=== PATIENT | female | born 1955 | race Caucasian/White ===

== ENCOUNTER → 2017-09-02 | Outpatient (CLI) | payer OTHER ==
[~2017-09-02] MED LIST: Lomotil Tablet1 EACH PO; ONDA8 PO; XARELTO20 MG PO; [UNRECOGNIZED DRUG - OTHER]
== END | disposition home or self-care (01) ==
LOC: LAB 09:38 → LAB SHORT 09:38
DX: R19.7 Diarrhea, unspecified (principal)
CPT/HCPCS: 87493

== ENCOUNTER 2017-09-03 10:31 | Emergency (ER) | payer OTHER ==
[~2017-09-03] VITALS: Ht 167.6 cm; Wt 54.4 kg
[2017-09-03 12:13] LABS: Hemoglobin 14.9 g/dL (11.5-16.0); Mean Corpuscular HGB 31.6 pg (26.0-34.0); Mean Corpuscular HGB Conc 33.9 g/dL (31.5-36.5); Mean Corpuscular Volume 93 fL (80-100); Platelet Count 221 K/mm3 (150-400); RDW Coefficient Variation 16.8 % (11.7-14.2); RDW Standard Deviation 56.1 fL (35.1-46.3); Red Blood Cell Count 4.71 M/mm3 (3.80-5.20); White Blood Cell Count 19.95 K/mm3 (4.00-11.30)
[2017-09-03 12:32] LABS: Alanine Aminotransfer (ALT/SGP 99 U/L (12-78); Albumin/Globulin Ratio 0.9 (0.8-1.8); Alk Phos 169 U/L (50-136); Anion Gap 9 mmol/L (6-16); Aspartate Aminotrans (AST/SGOT 34 U/L (12-37); Bilirubin, Total 0.4 mg/dL (0.1-1.0); Blood Urea Nitrogen 7 mg/dL (8-24); Bun/Creatinine Ratio 11.8 (12.0-20.0); CO2, Blood 24 mmol/L (21-32); Calcium, Blood 8.7 mg/dL (8.5-10.1); Chloride, Blood 105 mmol/L (98-108); Creatinine, Blood 0.59 mg/dL (0.40-1.00); Globulin, Blood 3.3 g/dL (2.2-4.0); Glomerular Filtration Rate >60 (60-); Glucose, Blood 85 mg/dL (70-99); Magnesium, Blood 1.4 mg/dL (1.6-2.4); Potassium, Blood 3.9 mmol/L (3.5-5.5); Sodium, Blood 138 mmol/L (136-145); Total Protein, Blood 6.3 g/dL (6.4-8.2)
[2017-09-03 12:43] LABS: BAND PERCENT MAN 4 % (0-8); BASOPHILS ABSOLUTE MAN 0.19 K/mm3 (0.00-0.23); BASOPHILS PERCENT MAN 1 % (0-2); EOSINOPHILS PERCENT MAN 0 % (0-6); LYMPHOCYTES ABSOLUTE MAN 0.79 K/mm3 (0.84-5.20); LYMPHOCYTES PERCENT MAN 4 % (21-46); MONOCYTES ABSOLUTE MAN 0.99 K/mm3 (0.16-1.47); MONOCYTES PERCENT MAN 5 % (4-13); NEUTROPHILS ABSOLUTE MAN 17.95 K/mm3 (1.96-9.15); SEG NEUTROPHILS PERCENT MAN 86 % (41-73); TOTAL CELLS COUNTED 100
[2017-09-03] MEDS ORDERED: Lomotil Tablet1 EACH PO (14:00)
== END 2017-09-03 15:23 | disposition home or self-care (01) ==
LOC: ER 10:31
PROVIDERS: Emergency Medicine
DX: K52.1 Toxic gastroenteritis and colitis (principal); E86.0 Dehydration; T45.1X5A Adverse effect of antineoplastic and immunosuppressive drugs, initial encounter; C18.9 Malignant neoplasm of colon, unspecified; C78.02 Secondary malignant neoplasm of left lung; C78.01 Secondary malignant neoplasm of right lung; C77.9 Secondary and unspecified malignant neoplasm of lymph node, unspecified; Z88.8 Allergy status to other drugs, medicaments and biological substances; Z88.0 Allergy status to penicillin; Z79.899 Other long term (current) drug therapy
CPT/HCPCS: 36415; 80053; 83735; 85025; 96365; 96366; 96375; 99283; J1200; J3475; J7030

== ENCOUNTER 2017-09-06 16:42 | Inpatient (IN) | payer OTHER ==
[~2017-09-06] VITALS: Ht 167.6 cm; Wt 60.1 kg
[2017-09-06 17:21] LABS: BASOPHILS ABSOLUTE AUTO 0.17 K/mm3 (0.00-0.23); BASOPHILS PERCENT AUTO 1 % (0-2); EOSINOPHILS ABSOLUTE AUTO 1.23 K/mm3 (0.00-0.68); EOSINOPHILS PERCENT AUTO 7 % (0-6); Hematocrit 43.3 % (33.0-51.0); Hemoglobin 14.9 g/dL (11.5-16.0); IMMATURE GRAN ABSOLUTE AUTO 0.23 K/mm3 (0.00-0.10); IMMATURE GRAN PERCENT AUTO 1 % (0-1); LYMPHOCYTES ABSOLUTE AUTO 0.72 K/mm3 (0.84-5.20); LYMPHOCYTES PERCENT AUTO 4 % (21-46); MONOCYTES ABSOLUTE AUTO 1.19 K/mm3 (0.16-1.47); MONOCYTES PERCENT AUTO 7 % (4-13); Mean Corpuscular HGB 31.7 pg (26.0-34.0); Mean Corpuscular HGB Conc 34.4 g/dL (31.5-36.5); Mean Corpuscular Volume 92 fL (80-100); Mean Platelet Volume 9.3 fL (9.1-12.4); NEUTROPHILS ABSOLUTE AUTO 14.52 K/mm3 (1.96-9.15); NEUTROPHILS PERCENT AUTO 80 % (41-73); Platelet Count 360 K/mm3 (150-400); RDW Coefficient Variation 16.3 % (11.7-14.2); RDW Standard Deviation 54.4 fL (35.1-46.3); White Blood Cell Count 18.06 K/mm3 (4.00-11.30)
[2017-09-06 17:47] LABS: Albumin, Blood 3.1 g/dL (3.4-5.0); Bilirubin, Total 0.5 mg/dL (0.1-1.0); Bun/Creatinine Ratio 17.6 (12.0-20.0); Calcium, Blood 8.2 mg/dL (8.5-10.1); Creatinine, Blood 1.02 mg/dL (0.40-1.00); Globulin, Blood 3.1 g/dL (2.2-4.0); Total Protein, Blood 6.2 g/dL (6.4-8.2)
[2017-09-06 19:04] LABS: International Normalized Ratio 2.02; Prothrombin Time Results 21.5 Sec (9.7-11.5)
[2017-09-08 07:38] LABS: BASOPHILS PERCENT AUTO 1 % (0-2); EOSINOPHILS ABSOLUTE AUTO 1.39 K/mm3 (0.00-0.68); EOSINOPHILS PERCENT AUTO 8 % (0-6); Hematocrit 37.2 % (33.0-51.0); Hemoglobin 12.8 g/dL (11.5-16.0); IMMATURE GRAN ABSOLUTE AUTO 0.19 K/mm3 (0.00-0.10); IMMATURE GRAN PERCENT AUTO 1 % (0-1); LYMPHOCYTES ABSOLUTE AUTO 0.48 K/mm3 (0.84-5.20); LYMPHOCYTES PERCENT AUTO 3 % (21-46); MONOCYTES ABSOLUTE AUTO 1.21 K/mm3 (0.16-1.47); MONOCYTES PERCENT AUTO 7 % (4-13); Mean Corpuscular HGB 31.3 pg (26.0-34.0); Mean Corpuscular HGB Conc 34.4 g/dL (31.5-36.5); Mean Corpuscular Volume 91 fL (80-100); Mean Platelet Volume 9.4 fL (9.1-12.4); NEUTROPHILS ABSOLUTE AUTO 14.03 K/mm3 (1.96-9.15); NEUTROPHILS PERCENT AUTO 81 % (41-73); Platelet Count 339 K/mm3 (150-400); RDW Coefficient Variation 16.5 % (11.7-14.2); RDW Standard Deviation 54.2 fL (35.1-46.3); Red Blood Cell Count 4.09 M/mm3 (3.80-5.20)
[2017-09-08 08:01] LABS: Bilirubin, Urine Neg (Neg); Blood, Urine 5+ (Neg); Glucose Qualitative, Urine Neg (Neg); Ketones, Urine 4+ (Neg); Leukocyte Esterase, Urine 1+ (Neg); Nitrite, Urine Neg (Neg); Protein, Urine 2+ (Neg); Specific Gravity, Urine 1.025 (1.003-1.022); Urobilinogen, Urine NORM (Normal)
[2017-09-08 08:03] LABS: Magnesium, Blood 1.2 mg/dL (1.6-2.4)
[2017-09-08 08:13] LABS: Alanine Aminotransfer (ALT/SGP 64 U/L (12-78); Albumin, Blood 2.5 g/dL (3.4-5.0); Alk Phos 105 U/L (50-136); Anion Gap 18 mmol/L (6-16); Aspartate Aminotrans (AST/SGOT 20 U/L (12-37); Bilirubin, Total 0.5 mg/dL (0.1-1.0); Blood Urea Nitrogen 10 mg/dL (8-24); CO2, Blood 9 mmol/L (21-32); Calcium, Blood 7.9 mg/dL (8.5-10.1); Chloride, Blood 110 mmol/L (98-108); Creatinine, Blood 0.59 mg/dL (0.40-1.00); Globulin, Blood 2.6 g/dL (2.2-4.0); Glomerular Filtration Rate >60 (60-); Glucose, Blood 68 mg/dL (70-99); Sodium, Blood 137 mmol/L (136-145); Total Protein, Blood 5.1 g/dL (6.4-8.2)
[2017-09-08 08:42] LABS: Appearance, Urine Clear (Clear); Color, Urine Yellow (P-Yellow)
[2017-09-08 08:47] LABS: Red Blood Cells, Urine 50-100 /hpf (0-2)
[2017-09-08 08:48] LABS: Bacteria Few /hpf; Hyaline Casts 0-2 /lpf (0-2); Squamous Epithelial Cells Few /hpf (Few)
[2017-09-09 05:48] LABS: BASOPHILS ABSOLUTE AUTO 0.12 K/mm3 (0.00-0.23); BASOPHILS PERCENT AUTO 1 % (0-2); EOSINOPHILS ABSOLUTE AUTO 1.77 K/mm3 (0.00-0.68); EOSINOPHILS PERCENT AUTO 14 % (0-6); Hematocrit 37.1 % (33.0-51.0); Hemoglobin 12.6 g/dL (11.5-16.0); IMMATURE GRAN PERCENT AUTO 1 % (0-1); LYMPHOCYTES ABSOLUTE AUTO 0.46 K/mm3 (0.84-5.20); LYMPHOCYTES PERCENT AUTO 4 % (21-46); MONOCYTES ABSOLUTE AUTO 1.11 K/mm3 (0.16-1.47); MONOCYTES PERCENT AUTO 9 % (4-13); Mean Corpuscular HGB 31.4 pg (26.0-34.0); Mean Corpuscular Volume 93 fL (80-100); Mean Platelet Volume 8.9 fL (9.1-12.4); NEUTROPHILS ABSOLUTE AUTO 9.39 K/mm3 (1.96-9.15); NEUTROPHILS PERCENT AUTO 72 % (41-73); Platelet Count 314 K/mm3 (150-400); RDW Coefficient Variation 16.5 % (11.7-14.2); RDW Standard Deviation 54.7 fL (35.1-46.3); Red Blood Cell Count 4.01 M/mm3 (3.80-5.20); White Blood Cell Count 12.95 K/mm3 (4.00-11.30)
[2017-09-09 06:06] LABS: Alanine Aminotransfer (ALT/SGP 51 U/L (12-78); Albumin, Blood 2.4 g/dL (3.4-5.0); Alk Phos 96 U/L (50-136); Anion Gap 15 mmol/L (6-16); Aspartate Aminotrans (AST/SGOT 18 U/L (12-37); Bilirubin, Total 0.4 mg/dL (0.1-1.0); Blood Urea Nitrogen 7 mg/dL (8-24); Bun/Creatinine Ratio 12.3 (12.0-20.0); CO2, Blood 13 mmol/L (21-32); Calcium, Blood 7.6 mg/dL (8.5-10.1); Chloride, Blood 109 mmol/L (98-108); Creatinine, Blood 0.57 mg/dL (0.40-1.00); Globulin, Blood 2.5 g/dL (2.2-4.0); Glomerular Filtration Rate >60 (60-); Glucose, Blood 77 mg/dL (70-99); Potassium, Blood 3.1 mmol/L (3.5-5.5); Sodium, Blood 137 mmol/L (136-145); Total Protein, Blood 4.9 g/dL (6.4-8.2)
[2017-09-10 05:21] LABS: BASOPHILS PERCENT AUTO 1 % (0-2); EOSINOPHILS ABSOLUTE AUTO 1.64 K/mm3 (0.00-0.68); EOSINOPHILS PERCENT AUTO 14 % (0-6); Hematocrit 36.1 % (33.0-51.0); Hemoglobin 12.4 g/dL (11.5-16.0); IMMATURE GRAN ABSOLUTE AUTO 0.09 K/mm3 (0.00-0.10); IMMATURE GRAN PERCENT AUTO 1 % (0-1); LYMPHOCYTES ABSOLUTE AUTO 0.48 K/mm3 (0.84-5.20); LYMPHOCYTES PERCENT AUTO 4 % (21-46); MONOCYTES PERCENT AUTO 8 % (4-13); Mean Corpuscular HGB 31.2 pg (26.0-34.0); Mean Corpuscular HGB Conc 34.3 g/dL (31.5-36.5); Mean Corpuscular Volume 91 fL (80-100); Mean Platelet Volume 8.8 fL (9.1-12.4); NEUTROPHILS ABSOLUTE AUTO 8.55 K/mm3 (1.96-9.15); NEUTROPHILS PERCENT AUTO 72 % (41-73); Platelet Count 324 K/mm3 (150-400); RDW Coefficient Variation 16.5 % (11.7-14.2); RDW Standard Deviation 54.3 fL (35.1-46.3); Red Blood Cell Count 3.97 M/mm3 (3.80-5.20); White Blood Cell Count 11.86 K/mm3 (4.00-11.30)
[2017-09-10 05:41] LABS: Anion Gap 11 mmol/L (6-16); Blood Urea Nitrogen 7 mg/dL (8-24); Bun/Creatinine Ratio 11.1 (12.0-20.0); CO2, Blood 15 mmol/L (21-32); Calcium, Blood 7.2 mg/dL (8.5-10.1); Chloride, Blood 114 mmol/L (98-108); Creatinine, Blood 0.63 mg/dL (0.40-1.00); Glomerular Filtration Rate >60 (60-); Glucose, Blood 95 mg/dL (70-99); Magnesium, Blood 1.2 mg/dL (1.6-2.4); Potassium, Blood 3.1 mmol/L (3.5-5.5); Sodium, Blood 140 mmol/L (136-145)
[2017-09-10 17:23] LABS: Alanine Aminotransfer (ALT/SGP 29 U/L (12-78); Albumin, Blood 1.8 g/dL (3.4-5.0); Alk Phos 65 U/L (50-136); Anion Gap 8 mmol/L (6-16); Aspartate Aminotrans (AST/SGOT 19 U/L (12-37); Bilirubin, Total <0.1 mg/dL (0.1-1.0); Blood Urea Nitrogen 5 mg/dL (8-24); Bun/Creatinine Ratio 8.8 (12.0-20.0); CO2, Blood 16 mmol/L (21-32); Calcium, Blood 6.7 mg/dL (8.5-10.1); Chloride, Blood 120 mmol/L (98-108); Creatinine, Blood 0.57 mg/dL (0.40-1.00); Globulin, Blood 1.8 g/dL (2.2-4.0); Glomerular Filtration Rate >60 (60-); Glucose, Blood 93 mg/dL (70-99); Magnesium, Blood 1.1 mg/dL (1.6-2.4); Potassium, Blood 3.6 mmol/L (3.5-5.5); Sodium, Blood 144 mmol/L (136-145); Total Protein, Blood 3.6 g/dL (6.4-8.2)
[2017-09-11 05:18] LABS: BASOPHILS ABSOLUTE AUTO 0.07 K/mm3 (0.00-0.23); BASOPHILS PERCENT AUTO 1 % (0-2); EOSINOPHILS PERCENT AUTO 17 % (0-6); Hematocrit 35.4 % (33.0-51.0); IMMATURE GRAN ABSOLUTE AUTO 0.08 K/mm3 (0.00-0.10); IMMATURE GRAN PERCENT AUTO 1 % (0-1); LYMPHOCYTES ABSOLUTE AUTO 0.42 K/mm3 (0.84-5.20); LYMPHOCYTES PERCENT AUTO 4 % (21-46); MONOCYTES PERCENT AUTO 8 % (4-13); Mean Corpuscular HGB 31.3 pg (26.0-34.0); Mean Corpuscular HGB Conc 33.9 g/dL (31.5-36.5); Mean Corpuscular Volume 92 fL (80-100); Mean Platelet Volume 8.9 fL (9.1-12.4); NEUTROPHILS ABSOLUTE AUTO 7.21 K/mm3 (1.96-9.15); NEUTROPHILS PERCENT AUTO 70 % (41-73); Platelet Count 296 K/mm3 (150-400); RDW Coefficient Variation 17.3 % (11.7-14.2); RDW Standard Deviation 57.4 fL (35.1-46.3); Red Blood Cell Count 3.83 M/mm3 (3.80-5.20); White Blood Cell Count 10.28 K/mm3 (4.00-11.30)
[2017-09-11 05:38] LABS: Alanine Aminotransfer (ALT/SGP 31 U/L (12-78); Albumin, Blood 1.9 g/dL (3.4-5.0); Albumin/Globulin Ratio 0.9 (0.8-1.8); Alk Phos 68 U/L (50-136); Anion Gap 9 mmol/L (6-16); Aspartate Aminotrans (AST/SGOT 18 U/L (12-37); Bilirubin, Total 0.2 mg/dL (0.1-1.0); Blood Urea Nitrogen 6 mg/dL (8-24); Bun/Creatinine Ratio 12.8 (12.0-20.0); CO2, Blood 16 mmol/L (21-32); Calcium, Blood 6.6 mg/dL (8.5-10.1); Chloride, Blood 117 mmol/L (98-108); Creatinine, Blood 0.47 mg/dL (0.40-1.00); Globulin, Blood 2.2 g/dL (2.2-4.0); Glomerular Filtration Rate >60 (60-); Glucose, Blood 94 mg/dL (70-99); Magnesium, Blood 1.7 mg/dL (1.6-2.4); Potassium, Blood 3.3 mmol/L (3.5-5.5); Sodium, Blood 142 mmol/L (136-145); Total Protein, Blood 4.1 g/dL (6.4-8.2)
[2017-09-12 05:01] LABS: BASOPHILS ABSOLUTE AUTO 0.07 K/mm3 (0.00-0.23); BASOPHILS PERCENT AUTO 1 % (0-2); EOSINOPHILS ABSOLUTE AUTO 1.78 K/mm3 (0.00-0.68); EOSINOPHILS PERCENT AUTO 18 % (0-6); Hematocrit 32.3 % (33.0-51.0); Hemoglobin 11.2 g/dL (11.5-16.0); IMMATURE GRAN ABSOLUTE AUTO 0.06 K/mm3 (0.00-0.10); IMMATURE GRAN PERCENT AUTO 1 % (0-1); LYMPHOCYTES ABSOLUTE AUTO 0.51 K/mm3 (0.84-5.20); LYMPHOCYTES PERCENT AUTO 5 % (21-46); MONOCYTES ABSOLUTE AUTO 0.72 K/mm3 (0.16-1.47); MONOCYTES PERCENT AUTO 7 % (4-13); Mean Corpuscular HGB 31.6 pg (26.0-34.0); Mean Corpuscular HGB Conc 34.7 g/dL (31.5-36.5); Mean Corpuscular Volume 91 fL (80-100); Mean Platelet Volume 8.9 fL (9.1-12.4); NEUTROPHILS ABSOLUTE AUTO 6.54 K/mm3 (1.96-9.15); NEUTROPHILS PERCENT AUTO 68 % (41-73); Platelet Count 313 K/mm3 (150-400); RDW Coefficient Variation 17.2 % (11.7-14.2); RDW Standard Deviation 56.8 fL (35.1-46.3); Red Blood Cell Count 3.54 M/mm3 (3.80-5.20); White Blood Cell Count 9.68 K/mm3 (4.00-11.30)
[2017-09-12 05:36] LABS: Anion Gap 9 mmol/L (6-16); Blood Urea Nitrogen 6 mg/dL (8-24); Bun/Creatinine Ratio 15.7 (12.0-20.0); CO2, Blood 20 mmol/L (21-32); Calcium, Blood 6.6 mg/dL (8.5-10.1); Chloride, Blood 114 mmol/L (98-108); Creatinine, Blood 0.38 mg/dL (0.40-1.00); Glomerular Filtration Rate >60 (60-); Glucose, Blood 88 mg/dL (70-99); Magnesium, Blood 1.3 mg/dL (1.6-2.4); Potassium, Blood 3.1 mmol/L (3.5-5.5); Sodium, Blood 143 mmol/L (136-145)
[2017-09-13 06:57] LABS: Anion Gap 8 mmol/L (6-16); Blood Urea Nitrogen 3 mg/dL (8-24); Bun/Creatinine Ratio 8.1 (12.0-20.0); CO2, Blood 23 mmol/L (21-32); Calcium, Blood 6.5 mg/dL (8.5-10.1); Chloride, Blood 113 mmol/L (98-108); Creatinine, Blood 0.37 mg/dL (0.40-1.00); Glomerular Filtration Rate >60 (60-); Glucose, Blood 82 mg/dL (70-99); Magnesium, Blood 1.3 mg/dL (1.6-2.4); Potassium, Blood 3.7 mmol/L (3.5-5.5); Sodium, Blood 144 mmol/L (136-145)
[2017-09-14 06:31] LABS: Anion Gap 8 mmol/L (6-16); Blood Urea Nitrogen 3 mg/dL (8-24); Bun/Creatinine Ratio 7.3 (12.0-20.0); CO2, Blood 24 mmol/L (21-32); Calcium, Blood 6.6 mg/dL (8.5-10.1); Chloride, Blood 112 mmol/L (98-108); Creatinine, Blood 0.41 mg/dL (0.40-1.00); Glomerular Filtration Rate >60 (60-); Glucose, Blood 87 mg/dL (70-99); Magnesium, Blood 1.4 mg/dL (1.6-2.4); Potassium, Blood 3.4 mmol/L (3.5-5.5); Sodium, Blood 144 mmol/L (136-145)
[2017-09-15 05:16] LABS: BASOPHILS ABSOLUTE AUTO 0.09 K/mm3 (0.00-0.23); BASOPHILS PERCENT AUTO 1 % (0-2); EOSINOPHILS ABSOLUTE AUTO 2.29 K/mm3 (0.00-0.68); EOSINOPHILS PERCENT AUTO 19 % (0-6); Hematocrit 33.9 % (33.0-51.0); Hemoglobin 11.8 g/dL (11.5-16.0); IMMATURE GRAN ABSOLUTE AUTO 0.08 K/mm3 (0.00-0.10); IMMATURE GRAN PERCENT AUTO 1 % (0-1); LYMPHOCYTES ABSOLUTE AUTO 1.26 K/mm3 (0.84-5.20); LYMPHOCYTES PERCENT AUTO 11 % (21-46); MONOCYTES ABSOLUTE AUTO 1.14 K/mm3 (0.16-1.47); MONOCYTES PERCENT AUTO 10 % (4-13); Mean Corpuscular HGB 31.5 pg (26.0-34.0); Mean Corpuscular HGB Conc 34.8 g/dL (31.5-36.5); Mean Corpuscular Volume 90 fL (80-100); Mean Platelet Volume 8.7 fL (9.1-12.4); NEUTROPHILS ABSOLUTE AUTO 7.07 K/mm3 (1.96-9.15); NEUTROPHILS PERCENT AUTO 59 % (41-73); Platelet Count 301 K/mm3 (150-400); RDW Standard Deviation 58.3 fL (35.1-46.3); Red Blood Cell Count 3.75 M/mm3 (3.80-5.20); White Blood Cell Count 11.93 K/mm3 (4.00-11.30)
[2017-09-15 05:42] LABS: Anion Gap 11 mmol/L (6-16); Blood Urea Nitrogen 6 mg/dL (8-24); Bun/Creatinine Ratio 14.3 (12.0-20.0); CO2, Blood 22 mmol/L (21-32); Calcium, Blood 6.7 mg/dL (8.5-10.1); Chloride, Blood 110 mmol/L (98-108); Creatinine, Blood 0.42 mg/dL (0.40-1.00); Glomerular Filtration Rate >60 (60-); Glucose, Blood 98 mg/dL (70-99); Magnesium, Blood 1.2 mg/dL (1.6-2.4); Potassium, Blood 3.9 mmol/L (3.5-5.5); Sodium, Blood 143 mmol/L (136-145)
[2017-09-15 19:56] LABS: Anion Gap 7 mmol/L (6-16); Blood Urea Nitrogen 7 mg/dL (8-24); Bun/Creatinine Ratio 15.5 (12.0-20.0); CO2, Blood 27 mmol/L (21-32); Calcium, Blood 7.3 mg/dL (8.5-10.1); Chloride, Blood 109 mmol/L (98-108); Creatinine, Blood 0.45 mg/dL (0.40-1.00); Glomerular Filtration Rate >60 (60-); Glucose, Blood 129 mg/dL (70-99); Sodium, Blood 143 mmol/L (136-145)
[2017-09-16 05:40] LABS: BASOPHILS ABSOLUTE AUTO 0.09 K/mm3 (0.00-0.23); BASOPHILS PERCENT AUTO 1 % (0-2); EOSINOPHILS ABSOLUTE AUTO 2.54 K/mm3 (0.00-0.68); EOSINOPHILS PERCENT AUTO 23 % (0-6); Hematocrit 33.9 % (33.0-51.0); Hemoglobin 11.5 g/dL (11.5-16.0); IMMATURE GRAN ABSOLUTE AUTO 0.04 K/mm3 (0.00-0.10); IMMATURE GRAN PERCENT AUTO 0 % (0-1); LYMPHOCYTES ABSOLUTE AUTO 1.32 K/mm3 (0.84-5.20); LYMPHOCYTES PERCENT AUTO 12 % (21-46); MONOCYTES PERCENT AUTO 9 % (4-13); Mean Corpuscular HGB 31.6 pg (26.0-34.0); Mean Corpuscular HGB Conc 33.9 g/dL (31.5-36.5); Mean Platelet Volume 8.3 fL (9.1-12.4); NEUTROPHILS ABSOLUTE AUTO 6.19 K/mm3 (1.96-9.15); NEUTROPHILS PERCENT AUTO 55 % (41-73); Platelet Count 329 K/mm3 (150-400); RDW Coefficient Variation 18.4 % (11.7-14.2); RDW Standard Deviation 60.3 fL (35.1-46.3); Red Blood Cell Count 3.64 M/mm3 (3.80-5.20); White Blood Cell Count 11.18 K/mm3 (4.00-11.30)
[2017-09-16 05:41] LABS: Mean Corpuscular Volume 93 fL (80-100)
[2017-09-16 05:59] LABS: Alanine Aminotransfer (ALT/SGP 54 U/L (12-78); Albumin, Blood 2.2 g/dL (3.4-5.0); Albumin/Globulin Ratio 0.9 (0.8-1.8); Alk Phos 67 U/L (50-136); Anion Gap 8 mmol/L (6-16); Aspartate Aminotrans (AST/SGOT 33 U/L (12-37); Bilirubin, Total 0.4 mg/dL (0.1-1.0); Blood Urea Nitrogen 6 mg/dL (8-24); CO2, Blood 27 mmol/L (21-32); Calcium, Blood 7.5 mg/dL (8.5-10.1); Chloride, Blood 109 mmol/L (98-108); Globulin, Blood 2.5 g/dL (2.2-4.0); Glomerular Filtration Rate >60 (60-); Glucose, Blood 98 mg/dL (70-99); Potassium, Blood 4.1 mmol/L (3.5-5.5); Sodium, Blood 144 mmol/L (136-145); Total Protein, Blood 4.7 g/dL (6.4-8.2)
[2017-09-17 05:33] LABS: Anion Gap 6 mmol/L (6-16); Blood Urea Nitrogen 7 mg/dL (8-24); Bun/Creatinine Ratio 15.1 (12.0-20.0); CO2, Blood 28 mmol/L (21-32); Calcium, Blood 7.7 mg/dL (8.5-10.1); Chloride, Blood 110 mmol/L (98-108); Creatinine, Blood 0.46 mg/dL (0.40-1.00); Glomerular Filtration Rate >60 (60-); Glucose, Blood 97 mg/dL (70-99); Magnesium, Blood 1.9 mg/dL (1.6-2.4); Potassium, Blood 4.2 mmol/L (3.5-5.5); Sodium, Blood 144 mmol/L (136-145)
[2017-09-17] MEDS ORDERED: ACET325 PO (12:19)
[2017-09-17] MEDS ORDERED: CALCITRATE200 MG PO (12:21)
[2017-09-17] MEDS ORDERED: DAIRY DIGES9000 UNIT PO (12:22)
[2017-09-17] MEDS ORDERED: CREON DR 12,001 EACH PO (12:22)
[2017-09-17] MEDS ORDERED: MAGOXI400 PO (12:23)
[2017-09-17] MEDS ORDERED: ONDA4 PO (12:29)
[2017-09-17] MEDS ORDERED: POTA10T PO (12:30)
[2017-09-17] MEDS ORDERED: XARELTO20 MG PO (12:30)
[2017-09-17] MEDS ORDERED: SACC250C PO (12:33)
[2017-09-17] MEDS ORDERED: SODBIC650 PO (12:33)
== END 2017-09-17 13:07 | disposition home or self-care (01) | DRG 372 ==
LOC: ER 16:42 → MEDS 16:43 → VAS 18:00 → MEDS 20:05 → ENPENDDIS 09-17 09:52 → MEDS 09-17 13:07
PROVIDERS: Emergency Medicine; Internal Medicine
DX: A04.72 Enterocolitis due to Clostridium difficile, not specified as recurrent (principal); I82.622 Acute embolism and thrombosis of deep veins of left upper extremity; C18.9 Malignant neoplasm of colon, unspecified; C79.9 Secondary malignant neoplasm of unspecified site; N17.9 Acute kidney failure, unspecified; N39.0 Urinary tract infection, site not specified; E46 Unspecified protein-calorie malnutrition; Z68.1 Body mass index [BMI] 19.9 or less, adult; E44.1 Mild protein-calorie malnutrition; E87.6 Hypokalemia; E83.42 Hypomagnesemia; E83.51 Hypocalcemia; B95.2 Enterococcus as the cause of diseases classified elsewhere; Z79.899 Other long term (current) drug therapy; Z88.0 Allergy status to penicillin
CPT/HCPCS: 36415; 36569; 80048; 80053; 81001; 83690; 83735; 85025; 85610; 85730; 87077; 87086; 87186; 87493; 93005; 93010; 93971; 96360; 96361; 99285; C1751; G0378; J0610; J0696; J1940; J2001; J2060; J3475; J3480; J7030; J7040; J7050

== ENCOUNTER 2018-12-26 18:04 | Emergency (ER) | payer OTHER ==
[~2018-12-26] VITALS: Ht 167.6 cm; Wt 53.1 kg
[~2018-12-26 18:04] MED LIST changes: +ACET325 PO; +CALCITRATE200 MG PO; +CREON DR 12,001 EACH PO; +DAIRY DIGES9000 UNIT PO; +MAGOXI400 PO; +ONDA4 PO; +POTA10T PO; +SACC250C PO; +SODBIC650 PO
[2018-12-26 19:28] LABS: Hematocrit 47.3 % (33.0-51.0); Hemoglobin 15.6 g/dL (11.5-16.0); LYMPHOCYTES ABSOLUTE AUTO 0.91 K/mm3 (0.84-5.20); LYMPHOCYTES PERCENT AUTO 6 % (21-46); MONOCYTES ABSOLUTE AUTO 0.38 K/mm3 (0.16-1.47); MONOCYTES PERCENT AUTO 2 % (4-13); Mean Corpuscular HGB 31.3 pg (26.0-34.0); Mean Corpuscular Volume 95 fL (80-100); Platelet Count 245 K/mm3 (150-400); RDW Coefficient Variation 13.5 % (11.7-14.2); RDW Standard Deviation 47.1 fL (35.1-46.3); Red Blood Cell Count 4.99 M/mm3 (3.80-5.20); White Blood Cell Count 15.88 K/mm3 (4.00-11.30)
[2018-12-26 19:29] LABS: BASOPHILS ABSOLUTE AUTO 0.03 K/mm3 (0.00-0.23); BASOPHILS PERCENT AUTO 0 % (0-2); EOSINOPHILS ABSOLUTE AUTO 0.19 K/mm3 (0.00-0.68); EOSINOPHILS PERCENT AUTO 1 % (0-6); IMMATURE GRAN ABSOLUTE AUTO 2.25 K/mm3 (0.00-0.10); IMMATURE GRAN PERCENT AUTO 14 % (0-1); NEUTROPHILS ABSOLUTE AUTO 12.12 K/mm3 (1.96-9.15); NEUTROPHILS PERCENT AUTO 76 % (41-73)
[2018-12-26 19:37] LABS: Source, Urine Clean Catch
[2018-12-26] MEDS ORDERED: CHEMO THERAPY (19:40)
[2018-12-26 19:49] LABS: BAND PERCENT MAN 5 % (0-8); BASOPHILS PERCENT MAN 0 % (0-2); EOSINOPHILS PERCENT MAN 0 % (0-6); LYMPHOCYTES ABSOLUTE MAN 1.74 K/mm3 (0.84-5.20); LYMPHOCYTES PERCENT MAN 11 % (21-46); MONOCYTES ABSOLUTE MAN 0.31 K/mm3 (0.16-1.47); MONOCYTES PERCENT MAN 2 % (4-13); NEUTROPHILS ABSOLUTE MAN 13.81 K/mm3 (1.96-9.15); SEG NEUTROPHILS PERCENT MAN 82 % (41-73); TOTAL CELLS COUNTED 100
[2018-12-26 19:50] LABS: Bilirubin, Urine Neg (Neg); Blood, Urine 2+ (Neg); Glucose Qualitative, Urine Neg (Neg); Ketones, Urine 3+ (Neg); Leukocyte Esterase, Urine 2+ (Neg); Nitrite, Urine Neg (Neg); Protein, Urine 2+ (Neg); Specific Gravity, Urine 1.025 (1.003-1.022); Urobilinogen, Urine NORM (Normal)
[2018-12-26 19:51] LABS: Alanine Aminotransfer (ALT/SGP 41 U/L (12-78); Albumin/Globulin Ratio 1.1 (0.8-1.8); Alk Phos 158 U/L (50-136); Anion Gap 6 mmol/L (6-16); Aspartate Aminotrans (AST/SGOT 37 U/L (12-37); Bilirubin, Total 0.7 mg/dL (0.1-1.0); Blood Urea Nitrogen 12 mg/dL (8-24); Bun/Creatinine Ratio 21.4 (12.0-20.0); CO2, Blood 26 mmol/L (21-32); Calcium, Blood 9.3 mg/dL (8.5-10.1); Chloride, Blood 103 mmol/L (98-108); Creatinine, Blood 0.56 mg/dL (0.40-1.00); Globulin, Blood 3.7 g/dL (2.2-4.0); Glomerular Filtration Rate >60 (60-); Glucose, Blood 98 mg/dL (70-99); Potassium, Blood 4.3 mmol/L (3.5-5.5); Sodium, Blood 135 mmol/L (136-145); Total Protein, Blood 7.7 g/dL (6.4-8.2)
[2018-12-26 19:57] LABS: Appearance, Urine Hazy (Clear); Color, Urine Yellow (P-Yellow)
[2018-12-26 19:59] LABS: Amorphous Light (0-Heavy); Bacteria Many /hpf; Calcium Oxalate Crystals Few /hpf; Mucus Light (0-Heavy); Squamous Epithelial Cells Mod /hpf (Few)
== END 2018-12-26 23:31 | disposition home or self-care (01) ==
LOC: ER 18:04
PROVIDERS: Emergency Medicine; Physician Assistant
DX: R19.7 Diarrhea, unspecified (principal); Z88.0 Allergy status to penicillin; Z88.8 Allergy status to other drugs, medicaments and biological substances; Z91.048 Other nonmedicinal substance allergy status; C18.9 Malignant neoplasm of colon, unspecified
CPT/HCPCS: 36415; 80053; 81001; 83605; 83690; 85025; 87040; 87077; 87086; 87186; 96360; 96361; 99284-25; J7030

== ENCOUNTER → 2018-12-27 | Outpatient (CLI) | payer OTHER ==
[~2018-12-27] MED LIST changes: +CHEMO THERAPY; +HYDR1TAB94 PO; +OMEPRAZOLE20 MG; +ONDA4ODT PO
[2018-12-27 15:39] LABS: Adenovirus F 40/41 Not Detected (NOT DETECT); Astrovirus Not Detected (NOT DETECT); Campylobacter Sp Not Detected (NOT DETECT); Cryptosporidium Not Detected (NOT DETECT); Cyclospora Cayetanensis Not Detected (NOT DETECT); E. Coli O157 Not Detected (NOT DETECT); Entamoeba Histolytica Not Detected (NOT DETECT); Enteroaggregative E. coli-EAEC Not Detected (NOT DETECT); Enteropathogenic E. coli-EPEC Not Detected (NOT DETECT); Enterotoxigenic E. coli-ETEC Not Detected (NOT DETECT); Giardia Lamblia Not Detected (NOT DETECT); Norovirus GI/GII Not Detected (NOT DETECT); Plesiomonas Shigelloides Not Detected (NOT DETECT); Rotavirus A Not Detected (NOT DETECT); Salmonella Sp Not Detected (NOT DETECT); Sapovirus Not Detected (NOT DETECT); Shiga Toxin-prod E. coli-STEC Not Detected (NOT DETECT); Shigella/Enteroin E. coli-EIEC Not Detected (NOT DETECT); Vibrio Cholerae Not Detected (NOT DETECT); Vibrio Sp Not Detected (NOT DETECT); Yersinia Enterocolitica Not Detected (NOT DETECT)
== END | disposition home or self-care (01) ==
LOC: LAB SHORT 06:45 → LAB 06:45
PROVIDERS: Emergency Medicine
DX: R19.7 Diarrhea, unspecified (principal)
CPT/HCPCS: 0097U

== ENCOUNTER 2019-03-06 07:08 | Inpatient (IN) | payer OTHER ==
[~2019-03-06] VITALS: Ht 167.6 cm; Wt 46.7 kg
[~2019-03-06 07:08] MED LIST changes: -HYDR1TAB94 PO; -OMEPRAZOLE20 MG; -ONDA4ODT PO
[2019-03-06 09:03] LABS: BASOPHILS ABSOLUTE AUTO 0.02 K/mm3 (0.00-0.23); BASOPHILS PERCENT AUTO 0 % (0-2); EOSINOPHILS ABSOLUTE AUTO 0.09 K/mm3 (0.00-0.68); EOSINOPHILS PERCENT AUTO 1 % (0-6); Hematocrit 45.7 % (33.0-51.0); Hemoglobin 15.2 g/dL (11.5-16.0); IMMATURE GRAN ABSOLUTE AUTO 0.02 K/mm3 (0.00-0.10); IMMATURE GRAN PERCENT AUTO 0 % (0-1); LYMPHOCYTES ABSOLUTE AUTO 1.01 K/mm3 (0.84-5.20); LYMPHOCYTES PERCENT AUTO 14 % (21-46); MONOCYTES ABSOLUTE AUTO 0.73 K/mm3 (0.16-1.47); MONOCYTES PERCENT AUTO 10 % (4-13); Mean Corpuscular HGB 29.6 pg (26.0-34.0); Mean Corpuscular HGB Conc 33.3 g/dL (31.5-36.5); Mean Corpuscular Volume 89 fL (80-100); Mean Platelet Volume 9.1 fL (9.1-12.4); NEUTROPHILS ABSOLUTE AUTO 5.61 K/mm3 (1.96-9.15); NEUTROPHILS PERCENT AUTO 75 % (41-73); Platelet Count 312 K/mm3 (150-400); RDW Coefficient Variation 14.3 % (11.7-14.2); RDW Standard Deviation 45.9 fL (35.1-46.3); Red Blood Cell Count 5.14 M/mm3 (3.80-5.20); White Blood Cell Count 7.48 K/mm3 (4.00-11.30)
[2019-03-06 09:22] LABS: Alanine Aminotransfer (ALT/SGP 28 U/L (12-78); Albumin, Blood 4.1 g/dL (3.4-5.0); Albumin/Globulin Ratio 1.1 (0.8-1.8); Alk Phos 85 U/L (50-136); Anion Gap 9 mmol/L (6-16); Aspartate Aminotrans (AST/SGOT 23 U/L (12-37); Bilirubin, Total 0.6 mg/dL (0.1-1.0); Blood Urea Nitrogen 14 mg/dL (8-24); Bun/Creatinine Ratio 20.4 (12.0-20.0); CO2, Blood 27 mmol/L (21-32); Chloride, Blood 103 mmol/L (98-108); Creatinine, Blood 0.69 mg/dL (0.40-1.00); Globulin, Blood 3.6 g/dL (2.2-4.0); Glomerular Filtration Rate >60 (60-); Glucose, Blood 104 mg/dL (70-99); Potassium, Blood 3.4 mmol/L (3.5-5.5); Sodium, Blood 139 mmol/L (136-145); Total Protein, Blood 7.7 g/dL (6.4-8.2)
--- NOTE | 2019-03-06 11:11 | NUR ---
Initial Visit: Pt is in the ER; complains of abd discomfort and "bloating." History of colon cancer - diagnosed in 2014, had colon resection - removing area of decending colon, per patient. History of chemo and radiation therapy with Dr. Shafer, which she stopped after 2 treatments due to increased nausea, vomitining, and diahrrea. History of c-diff at that time. Her last treatment was in November; she was hospitalized shortly after for dehydration. She appears to be a good historian and relates all of her history herself. Pt reports rapid decline of weight, increased abd "discomfort," and increasing abd girth. Brother, Lyndon, reports that pt has recently and repeatedly had this same complaint and that it would resolve briefly and "come right back." Multiple visits to Dr. Gan lately to address this. She states that she was given Miralax and antibiotics that did not help her condition. Pt denies pain, however, reports high level of discomfort in her belly and lower abd. No sharp pains, however, reports she has experienced "spasms" at home. BM are abnormal: appearing in long loops and ribbon-like appearance. Pt states that she would like to be a FULL code. She remembers agreeing to DNR/DNI last time she was here; did not like the purple wrist band and changed her code status to FULL again. She would accept recusitation efforts - both CPR and intubation. Lyndon states beside her: "anything and everything." Pt reports that Dr. Shafer has told her that she has lung nodules at her last appointment, she was told to have regular scans to make sure they were stable and not getting any bigger. Complains of feeling as though her belly is pushing up on her lungs and she is unable to take in a full breath, but denies any shortness of breath at rest or when ambulating. Uses a walker at baseline. Lyndon reports that she has not been able to take a shower "in weeks" due to weakness and fatigue. Pt sleeping okay at nighttime and states refreshed in the morning, but fatigue later during the day. She is having very poor appetite and early satiety. Had 2 pieces of bread, a Boost drink and some ice cream yesterday to eat. States her biggest concern is her weight loss and concern that she is not getting enough food to sustain her. She states, "that's why I came here. I need help. Can you help me?" Instructed that the doctor will review this when the results of the CT scan are available. Plan for care will be developed after this. She is unsure if she will be admitted or if she will be able to go home. She is having some anxiety related to CT scan, denies need for medication. Is not in pain. Call placed to Dr. Jos Gan's office. Pt was seen first on Feb 15 for abd discomfort and she was prescribed Cipro. On Feb 17, they gave her prescription for Z-Guanaco, and later called the office again after this was not successful in treating her complaints, she was given precription for Miralax on Feb 20. Updated Dr. Crawford and nurse, Malika on conversation. Pt seems to have good recall for medical history, but poor understanding of prognosis of worsening disease and consequences relating to discontinuation of chemo treatments. Palliative care needs follow up with pt and family to have further conversations on prognosis, and advanced care planning. Pt does not have advance directive or a POLST.
[2019-03-06 11:16] LABS: Source, Urine Clean Catch
[2019-03-06 11:19] LABS: Appearance, Urine Clear (Clear); Bilirubin, Urine Neg (Neg); Blood, Urine Neg (Neg); Color, Urine Yellow (P-Yellow); Glucose Qualitative, Urine Neg (Neg); Ketones, Urine Neg (Neg); Leukocyte Esterase, Urine 1+ (Neg); Nitrite, Urine Neg (Neg); Protein, Urine 2+ (Neg); Specific Gravity, Urine 1.015 (1.003-1.022); Urobilinogen, Urine NORM (Normal)
[2019-03-06 11:36] LABS: Bacteria Few /hpf; Red Blood Cells, Urine 0-2 /hpf (0-2); Squamous Epithelial Cells Few /hpf (Few); White Blood Cells, Urine 0-2 /hpf (0-5)
[2019-03-06 11:37] LABS: Calcium Oxalate Crystals Mod /hpf
--- NOTE | 2019-03-06 18:55 | NUR ---
SHIFT SUMMARY: VISHAL IS A NEW ADMIT FROM THE ER FOR A SMALL BOWEL OBSTRUCTION. SHE HAS THE HISTORY OF METASTATIC LYMPHOMA. SHE DISCONTINUED CHEMOTHERAPY November DUE TO HER INABILITY TO TOLERATE IT DUE TO DIARRHEA AND WEIGHT LOSS. SHE IS INDEPENDENT TO THE BATHROOM WITH A FWW. SHE DID TOLERATE A FULL LIQUID DIET AT [facility], DENIED ANY N/V AT THAT TIME. SURGICAL CONSULT COMPLETE, PALLIATIVE CARE AND NUTRITION CONSULTS ACTIVE. SHE IS A&O X4, ABLE TO MAKE HER NEEDS KNOWN. SHE IS LYING IN BED WITH HER CALL LIGHT IN REACH.
--- NOTE | 2019-03-06 19:55 | NUR ---
ASSUMED CARE ASSUMED CARE OF PT APPROX. 1900. PT A&OX4. ASSESSMENT COMPLETED. PT HAS GENERALIZED WEAKNESS AND SKIN OVERALL IS FRAGILE BUT C,D,I. ABDOMEN DISTENDED AND FIRM WITH HYPERACTIVE BOWEL TONES T/O. PT DENIES ANY DISCOMFORT AT THIS TIME. PT ABLE TO USE FWW AND WALK TO BATHROOM NEEDED. PT IN BED, BED IN LOW POSITION, CALL LIGHT IN REACH AND PT DENIES ANY NEEDS. WILL CONTINUE TO MONITOR.
--- NOTE | 2019-03-07 00:43 | NUR ---
NOTE PT AWOKEN MOANING AND GROANING. PT REPORTS SHE IS EXTREMLY UNCOMFORTABLE AND HER ABDOMEN HAS TOO MUCH PRESSURE IN IT. PT INQUIRED ABOUT THE OPTIONS TO HELP RELIEVE THIS PRESSURE. SHE SHE ASKED ABOUT THE TUBE THAT GOES IN EHR NOSE. PROVIDED PT WITH MORE INFORMATION ABOUT WHAT THIS WAS AND THE PROCESS. PT STATES THAT THIS SOUNDS LIKE IT IS SOMETHING SHE WANTS NOW. HAD PT SIT AT SIDE OF BED, PROVIDED A WARM BALNKET AND PROVIDED CALMING TECHNIQUES. AFTER PT WAS CALMED DOWN. I TALKED WITH PT ABOUT HER WISHES AGAIN. SHE CONTINUES TO REPORT THAT SHE WANTS TO HAVE THE NG TUBE. SHE STATES SHE WANTS TO SEE IF THIS WILL HELP RELIEVE SOME PRESSURE IN HER ABDOMEN. ATTEMPTED TO CONTACTED HOSPITALIST AT THIS TIME. WILL FOLLOW UP IF NOT RETURN CALL IS RECIEVED.
--- NOTE | 2019-03-07 01:05 | NUR ---
REPORT GIVEN REPORT GIVEN TO RECIEVING RN. ORDER RECIEVED FOR NG TUBE. THIS INFORMATION WAS PASSED ONTO RECIEVING RN. PT WAS ABLE TO SLEEP A COUPLE OF HOURS. PT ABLE TO USE FWW AND WALK TO BATHROOM NEEDED. NO ACUTE CHANGES SINCE START OF SHIFT. BED IN LOW POSITION, CALL LIGHT IN REACH AND PT DENIES ANY NEEDS.
--- NOTE | 2019-03-07 01:40 | NUR ---
ASSUMED CARE OF PT. PT AGREED TO PLACE NGT. PLACED 14F NGT INTO RIGHT NARE. INSTANTLY DRAINED 500ML GREEN FLUID. REPOSITIONED IN BED. NGT TO LOW INTERM SUCTION. CALL LIGHT IN REACH.
[2019-03-07 05:10] LABS: BASOPHILS ABSOLUTE AUTO 0.03 K/mm3 (0.00-0.23); BASOPHILS PERCENT AUTO 0 % (0-2); EOSINOPHILS ABSOLUTE AUTO 0.08 K/mm3 (0.00-0.68); EOSINOPHILS PERCENT AUTO 1 % (0-6); Hematocrit 42.4 % (33.0-51.0); Hemoglobin 13.9 g/dL (11.5-16.0); IMMATURE GRAN ABSOLUTE AUTO 0.02 K/mm3 (0.00-0.10); IMMATURE GRAN PERCENT AUTO 0 % (0-1); LYMPHOCYTES ABSOLUTE AUTO 0.91 K/mm3 (0.84-5.20); LYMPHOCYTES PERCENT AUTO 13 % (21-46); MONOCYTES ABSOLUTE AUTO 0.97 K/mm3 (0.16-1.47); MONOCYTES PERCENT AUTO 14 % (4-13); Mean Corpuscular HGB 29.5 pg (26.0-34.0); Mean Corpuscular HGB Conc 32.8 g/dL (31.5-36.5); Mean Corpuscular Volume 90 fL (80-100); Mean Platelet Volume 9.4 fL (9.1-12.4); NEUTROPHILS ABSOLUTE AUTO 5.18 K/mm3 (1.96-9.15); NEUTROPHILS PERCENT AUTO 72 % (41-73); Platelet Count 305 K/mm3 (150-400); RDW Coefficient Variation 14.4 % (11.7-14.2); RDW Standard Deviation 47.5 fL (35.1-46.3); Red Blood Cell Count 4.71 M/mm3 (3.80-5.20); White Blood Cell Count 7.19 K/mm3 (4.00-11.30)
--- NOTE | 2019-03-07 05:34 | NUR ---
PT STATES FEELING BETTER SINCE NGT PLACED. PT WAS ABLE TO GET SOME REST. NGT PLACED OUT OVER 1000ML THIS SHIFT. DENIES ANY SIG PAIN, DENIES NAUSEA NOW. PT DOES GET UP AND AMBULATE WITH SBA. CALL LIGHT IN REACH, WILL REPORT OFF TO NEXT SHIFT.
[2019-03-07 06:29] LABS: Anion Gap 7 mmol/L (6-16); Blood Urea Nitrogen 14 mg/dL (8-24); Bun/Creatinine Ratio 19.3 (12.0-20.0); CO2, Blood 30 mmol/L (21-32); Calcium, Blood 9.5 mg/dL (8.5-10.1); Chloride, Blood 102 mmol/L (98-108); Creatinine, Blood 0.72 mg/dL (0.40-1.00); Glomerular Filtration Rate >60 (60-); Glucose, Blood 100 mg/dL (70-99); Potassium, Blood 3.6 mmol/L (3.5-5.5); Sodium, Blood 139 mmol/L (136-145)
--- NOTE | 2019-03-07 12:12 | NUR ---
SPIRITUAL CARE IN ROOM
--- NOTE | 2019-03-07 13:29 | NUR ---
Patient is lying in bed and alert. Patient immediately shares that she has desions to make; More chemo or surgery or comfort care and possible hospice. I asked patient what want to do... she states that she is tired and wants to go be with her mother in [facility] (Mother 2018). I go back and ask about quality of life over last few years, about family, about spiritual beliefs ([place] [employer]), about what has led up to these medical options for her. I ask risk versus benefit for the options she is considering and asked if she got all her questions answered. Patient states that she has questions about quality of life after surgery and she wants to know what her oncologist thinks her chances are after seeing the most recent CT scan. Patient says she has shifted in her leaning concerning her options and feels confident once all the questions are answered the desion will make itself quite apparent. I listen empathically and provide pastoral guidance, reading of the Apostle's Creed, quotation of scripture and prayer. Patient responds well and shows signs of more peace in the decsion making process. I will continue to remain available to patient and family.
--- NOTE | 2019-03-07 13:41 | NUR ---
DR. MURRAY CONSULTED WITH VISHAL. SHE STATES THAT SHE WOULD LIKE TO PROCEED WITH THE RESECTION AND OSTOMY SO THAT SHE CAN CONTINUE TO EAT FOR LONG POSSIBLE. DR. KIM OFFICE CALLED. DR. RUSSELL' OFFICE TO ORDER HOSPICE.
--- NOTE | 2019-03-07 14:03 | NUR ---
Pt visit this afternoon. Spoke with bedside nurse prior to visit. Bedside nurse reports Dr Shafer just visited with Pt and has recommended hospice for Pt. Pt is also agreeable for surgical procedure for to help with comfort when she eats. Pt is resting in bed upon arrival. When asked about pain she reports more of a discomfort at this time. Listened as Pt discussed Dr Shafer's visit and his recommendation for hospice. Educated on hospice philosophy. Pt reports difficulty processing all information provided to her today. Instructed Pt to ask as many questions as often as she needs in order to help process things. Ended visit to allow Pt to rest and process information. Pt is agreeable for Palliative Care to F/U with therapeutic visits. Pt asks questions regarding her [employer] plan and this RN deferred questions to deisi. No other concerns reqported at this time. Spoke with Deisi Keys discussed case and relayed concerns. Ludmila will address concerns and provide hospice angencies that are available to choose from. Palliative Care will remain available.
--- NOTE | 2019-03-07 18:21 | NUR ---
SHIFT SUMMARY: VISHAL HAS DECIDED THAT SHE WOULD LIKE TO HAVE THE END ILEOSTOMY. DR. JUSTIN CONSULTED THIS AFTERNOON, DR. YA IS TAKING OVER THE CONSULT TOMORROW. VSS. SHE IS ABLE TO MAKE HER NEEDS KNOWN. SHE HAS HAD MANY QUESTIONS ABOUT THE OSTOMY AND THE APPLIANCE. SHE FEELS THAT THIS IS THE BEST COURSE OF ACTION FOR HER AT THIS STAGE IN THE DISEASE PROCESS. SHE IS LYING IN BED WITH THE CALL LIGHT IN REACH.
[2019-03-08 05:37] LABS: Anion Gap 16 mmol/L (6-16); Blood Urea Nitrogen 15 mg/dL (8-24); Bun/Creatinine Ratio 21.5 (12.0-20.0); CO2, Blood 23 mmol/L (21-32); Calcium, Blood 8.9 mg/dL (8.5-10.1); Chloride, Blood 100 mmol/L (98-108); Glomerular Filtration Rate >60 (60-); Glucose, Blood 63 mg/dL (70-99); Potassium, Blood 3.2 mmol/L (3.5-5.5); Sodium, Blood 139 mmol/L (136-145)
--- NOTE | 2019-03-08 07:48 | NUR ---
SHIFT SUMMARY PT RESTED WELL T/O NIGHT. AAOX4/DEPRESSED AT TIMES. PT DENIES PAIN/NAUSEA T/O NIGHT. NGT IN PLACE WITH LARGE AMOUNTS GREEN/CLEAR OUT POST NGT REPOSITIONING YESTARDAY EVENING. INDEPEDENT UP TO BSC, TOLERATES WELL. SURGICAL CONSULT TO BE DONE TODAY. NO ACUTE CHANGES T/O NIGHT. PT RESTING THIS AM WITH CALL LIGHT IN REACH.
--- NOTE | 2019-03-08 14:28 | NUR ---
Spiritual care visit conducted. Patient is sitting on EOB and alert. Patient tells me about her decision to go with a surgical procedure and then to go home on hospice. We talk about her concerns for herself and about what her concerns are for her family. She also asks me to read scriptures from the book of Aleshia and scriptures about eternity. I read Ps. 16 and selected other readings from the Bible about the beauty of heaven and how we can know we will go there. Patient is very appreciative. I also provide prayer which patient also voices gratitude for. Patient responds well and shows signs of an elevated mood. I will continue to remain available to patient and family.
--- NOTE | 2019-03-08 17:16 | NUR ---
SHIFT SUMMARY PT A&OX4, VSS. DENIES PAIN. DENIES N&V, WHITNEY PO WATER AND CHIPS. INDEPENDENT TRANSFER TO BSC, LOW OUTPUT. NG TUBE LOW INTERMITTENT SUCTION, LG OUTPUT - GREEN AND CLEAR. PLAN IS FOR CONSULT WITH DR YA FOR OSTOMY PLACEMENT. WILL REPORT OFF TO ONCOMING NOC RN.
--- NOTE | 2019-03-09 06:04 | NUR ---
SUMMARY PT SLEPT QUIETLY. AWAKE FOR RADIOLOGY. OOB FOR BSC.OUT TO XRAY VIA W/C PER LIQUID CHLORINE OPERATOR.
--- NOTE | 2019-03-09 10:47 | NUR ---
Clinical Visit: Pt seen as follow up. She is waiting for the surgeon to talk to her about possible ostomy placment. She states that she is more comfortable today than when I talked to her in the ER. She remembers my name, her night nurse's name, and also the other Palliative nurse that has visited her, Sanya. Pt is alert, oriented to time, situation, place. She reports she is expecting her brother to visit her tomorrow, as he is aware of her possible surgery today. Denies pain, denies anxiety. Will remain available. Pt expressed gratitude of my visit and would be open to visits in the future.
--- NOTE | 2019-03-09 18:21 | NUR ---
SUMMARY: PT A/O, VSS. NO ACUTE CHANGE.PT REMAINED NPO UNTIL SEEN BY DR. YA. PLAN IS FOR SURGERY TOMORROW PER DR. AY. PT ABLE TO TAKE IN ICE CHIPS NOW. PT ENCOURAGED TO [facility] INTAKE SLOW. OTHERWISE NO CHANGE. PT INDEPENDENT IN ROOM. NGT TO LIS. WILL CTM AND REPORT TO KOKI HEWITT.
--- NOTE | 2019-03-10 07:17 | NUR ---
SUMMARY PT PENDING OR TODAY. NO C/O NAUSEA DURING NIGHT.
--- NOTE | 2019-03-10 10:23 | NUR ---
palliative care in to visit with patient at this time. plan for surgery today around 1230pm. pt remains npo.
--- NOTE | 2019-03-10 10:27 | NUR ---
Clinical Visit: Pt alert, oriented. She states that she is hoping that the surgery will improve her quality of life. It is important to her to keep her weight up for as long as she can, so that she may live longer. She is aware that this disease will cause her eventually. She appears to have good coping skills and realistic perception of prognosis. Will follow up with pt after her surgery, as pt allows, to help her plan for the rest of her life. Her short term goals are to eat and have nutrition. Have not explored her desires for the time when she starts another decline in function. She is extremely weak and hopes that she will get stronger as she is allowed to eat. Have not discussed hospice with her, however, this is an appropriate discussion sometime following her surgery. Pt has a "one problem at a time" approach regarding life philosophy. Will engage with pt within her accepted style of problem solving. Palliative care to remain available.
--- NOTE | 2019-03-10 12:45 | NUR ---
SURGERY: PT TO THE OR AT THIS TIME. SURICAL PKT COMPLETED. PT UP TO VOID. NGT CLAMMPED. DAY SURGERY NOTIFIED OF 22G IV PLACEMENT AND DIFFICULTY WITH IV PLACEMENTS.
--- NOTE | 2019-03-10 13:43 | NUR ---
"DAY SURGERY RN | REPORT TO DENISE HEWITT."
--- NOTE | 2019-03-10 14:32 | NUR ---
"DAY SURGERY RN | TO OR Patient to OR. No issues in day surgery."
--- NOTE | 2019-03-10 17:48 | NUR ---
PT RETURNED TO ROOM 208 POST OP. PT ALERT, VSS. DENIES PAIN AT THIS TIME. [place] DRAINING YELLOW URINE. MIDLINE INCISION CDI. ILLEOSTOMY WITH SMALL AMT STOOL PRESENT IN BAG. NGT DC'D POST OP. PT GIVEN ICE CHIPS. NO NAUSEA. PAS TO BLE.
--- NOTE | 2019-03-11 07:49 | NUR ---
SUMMARY POD #1 PT DID WELL THROUGH THE NIGHT.VSS, RESP UNLABORED. MINIMAL PAIN REPORTED. PT MEDICATED X1 PRIOR TO DRSG CHANGE. OSTOMY & WOUND VAC WERE CHANGED DUE TO LEAKAGE AND SATURATION. INCISION AND SKIN WERE WASHED PRIOR TO NEW DRSG BEING APPLIED. PT TOLERATED WELL. 1450 ML CLEAR LIQUID STOOL NOTED IN OSTOMY THROUGH THE NIGHT. URINE IS CLEAR, YELLOW. PT IS TOLERATING CLEAR FLUIDS. SHE HAS BEEN EDUCATED ABOUT ADVANCING HER DIET SLOWLY. NO NAUSEA NOTED. REPORT GIVEN TO DAY RN. CALL LIGHT IN REACH.
--- NOTE | 2019-03-11 17:12 | NUR ---
SHIFT SUMMARY PT A&OX4, VSS, POD1 EXP LAP W/YRIS, ILEOSTOMY W/LG AMTS GREEN LIQUID OUT, REQUIRING EMPTYING Q1-2. BEGAN WORKING WITH PT ON EMPTYING ON HER OWN. STAND PIVOT TO CHAIR. DENIES PAIN. DENIES N&V, WHITNEY PO. WILL REPORT TO ONCOMING NOC RN.
--- NOTE | 2019-03-12 06:01 | NUR ---
SUMMARY POD #2 NO ACUTE CHANGES THROUGH THE NIGHT. STOMA REMAINS BEEFY RED/MOIST. 950 ML LIQUID STOOL NOTED IN BAG. PT IS TOLERATING PO INTAKE WITH NO NAUSEA. DENIES NEED FOR PAIN MEDICINE. PT HAS SLEPT WITH NO PROBLEMS. CALL LIGHT IN REACH.
--- NOTE | 2019-03-12 15:50 | NUR ---
SHIFT SUMMARY PT A&OX4, VSS, POD2 MINILAP W/YRIS, DIVERTING LOOP ILEOSTOMY; ILEOSTOMY WITH LARGE OUTPUT REQUIRING EMPTYING Q1-2HR; MIDLINE INCISION W/MEDIPORE CDI. WHITNEY REGULAR DIET, DENIES N&V. DENIES PAIN. VOIDING WELL. STAND/PIVOT TO BSC AND CHAIR. OSTOMY EDUCATION ENC, & ENC PT TO PARTICIPATE IN EMPTYING OSTOMY. PT IS DISCOURAGED AND OVERWHELMED TODAY AND AFTER DISCUSSING HOME WITH HOSPICE WITH BROTHERS HAS DECIDED SHE WOULD BE BETTER CARED FOR IN A FACILITY WHERE SHE COULD RECEIVE THE SUPPORT AND CARE NEEDED IN HER LAST DAYS; PT DOES NOT BELIEVE HER BROTHERS CAN CARE FOR HER AT HOME. WILL REPORT TO GLORIA TELLES RN.
--- NOTE | 2019-03-13 03:27 | NUR ---
SHIFT SUMMARY PT CONTINUES TO HAVE GOOD OUTPUT OUT OF OSTOMY. PT OP SITE DRESSING IS CLEAN AND INTACT. PT WAS UP LATE INTO THE SHIFT. PT HAS VOIDED DURING SHIFT. PT IS CURRENTLY SLEEPING AND BREATHING EASY. CALL LIGHT IN REACH.
--- NOTE | 2019-03-13 04:16 | NUR ---
*COFFEE GROUND LIQUID STOOL IN OSTOMY* PT WAS FOUND THIS AM WITH INCREASED PULSE RATE OF 129. OSTOMY HAD 300 ML OF COFFE GROUND LIQUID STOOL NOTED. PT REPORTS SOME DIZZINESS.
--- NOTE | 2019-03-13 04:44 | NUR ---
PROVIDER CALLED REGARDING COFFEE GROUND STOOL AND HEART RATE. DR WALKER ORDERED CBC, NS @ 120 ML/ HR, AND PROTONIX IV BID.
[2019-03-13 05:14] LABS: BASOPHILS ABSOLUTE AUTO 0.03 K/mm3 (0.00-0.23); BASOPHILS PERCENT AUTO 0 % (0-2); EOSINOPHILS ABSOLUTE AUTO 0.21 K/mm3 (0.00-0.68); EOSINOPHILS PERCENT AUTO 3 % (0-6); Hematocrit 46.4 % (33.0-51.0); Hemoglobin 15.5 g/dL (11.5-16.0); IMMATURE GRAN ABSOLUTE AUTO 0.05 K/mm3 (0.00-0.10); IMMATURE GRAN PERCENT AUTO 1 % (0-1); LYMPHOCYTES ABSOLUTE AUTO 1.29 K/mm3 (0.84-5.20); LYMPHOCYTES PERCENT AUTO 17 % (21-46); MONOCYTES PERCENT AUTO 12 % (4-13); Mean Corpuscular HGB 29.2 pg (26.0-34.0); Mean Corpuscular HGB Conc 33.4 g/dL (31.5-36.5); Mean Platelet Volume 9.7 fL (9.1-12.4); NEUTROPHILS ABSOLUTE AUTO 5.15 K/mm3 (1.96-9.15); NEUTROPHILS PERCENT AUTO 67 % (41-73); Platelet Count 265 K/mm3 (150-400); RDW Coefficient Variation 13.8 % (11.7-14.2); RDW Standard Deviation 43.8 fL (35.1-46.3); Red Blood Cell Count 5.31 M/mm3 (3.80-5.20); White Blood Cell Count 7.63 K/mm3 (4.00-11.30)
[2019-03-13 05:16] LABS: Mean Corpuscular Volume 87 fL (80-100)
--- NOTE | 2019-03-13 11:20 | NUR ---
[facility] care visit conducted. Patient is lying in bed and resting. Patient awakens to the sound of her name. Patient catches me up on the events of the last couple of days and tells me what is happening relatively soon (going to [facility]. Cntr on hospice). Patient tells me why she has made these choices and and how she feels about it. We have further conversations about and dying and I read inspirational Bible verses that correspond to the topic. I also provide prayer and suggest maybe playing guitar for her later if she is awake. Patient agrees that it might be nice. I will continue to remain available to patient and family.
--- NOTE | 2019-03-13 16:51 | NUR ---
SHIFT SUMMARY PT A&0X4, VSS. PATIENT UP TO BSC WITH MINIAML ASSIST. NO COMPLAINTS OF PAIN DURING DAY. OSTOMY OUTPUTTING BROWN/GREEN LIQUID STOOL DURING SHIFT. MEPLEX ON COCCYX, CHANGED TODAY. NO REDNESS SEEN UNDERNEATH. PATIENT HAS BEEN PLEASANT AND FRIENDLY DURING SHIFT. NORMAL SALINE INFUSING.
[2019-03-14 06:20] LABS: Hematocrit 43.6 % (33.0-51.0); Hemoglobin 14.6 g/dL (11.5-16.0); Mean Corpuscular HGB 29.1 pg (26.0-34.0); Mean Corpuscular HGB Conc 33.5 g/dL (31.5-36.5); Mean Corpuscular Volume 87 fL (80-100); Mean Platelet Volume 10.1 fL (9.1-12.4); Platelet Count 284 K/mm3 (150-400); RDW Standard Deviation 44.2 fL (35.1-46.3); Red Blood Cell Count 5.02 M/mm3 (3.80-5.20); White Blood Cell Count 7.46 K/mm3 (4.00-11.30)
--- NOTE | 2019-03-14 07:13 | NUR ---
SUMMARY NO ACUTE CHANGES THIS SHIFT.
[2019-03-14] MEDS ORDERED: ONDA4ODT PO (11:02)
[2019-03-14] MEDS ORDERED: OMEPRAZOLE20 MG (11:02)
[2019-03-14] MEDS ORDERED: HYDR1TAB94 PO (11:02)
--- NOTE | 2019-03-14 15:45 | NUR ---
Spiritual care visit conducted. Patient openly shares about her ideas of a good , about how her brother's will do without her and about how things in the spiritual world will as her days draw to a close. Patient talks this way but also closes our visit by saying, "But I am not checking out yet, not yet." Patient asks me to read the Bible to her. I read Out of the Book of Alexy 26:3-4. Patient is very encouraged by it and asks me to read it 3xs through out the visit. We talk about her transition over to [facility] and then I pray for her. Patient is very appreciative and asks if I could visit her there as well.
--- NOTE | 2019-03-14 17:11 | NUR ---
SHIFT SUMMARY POD 3 ILEOSTOMY PATIENT HAS BEEN ALERT AND ORIENTED AND PLEASANT TODAY. NO COMPLAINTS OF PAIN. OSTOMY PINK AND BEEFY, LIQUID BROWN OUTPUT DURING DAY. PATIENT CALLING APPROPRIATLY TO CHANGE. KVO FLUIDS INFUSING DURING DAY. PATIENT REPOSITIONING SELF IN BED THROUGHOUT SHIFT. EATING WELL. PLAN IS TO DISCHARGE ON HOSPICE TO CARE FACILITY.
--- NOTE | 2019-03-14 18:34 | NUR ---
POWERGLIDE POWERGLIDE LEFT UPPER ARM INFUSING. FLUSHES WELL. DRESSING INTACT.
--- NOTE | 2019-03-15 04:27 | NUR ---
SHIFT SUMMARY HAS RESTED WELL, DENIES PAIN. TO BE DISCHARGED TO CORRECTION WITH HOSPICE, WAITING ON APPROVAL FROM INSURANCE. DENEIS FURTHER NEEDS AT THIS TIME. SAFETY MEASURES IN PLACE. WILL GIVE HAND OFF TO ONCOMING SHIFT USING SBAR.
--- NOTE | 2019-03-15 10:11 | NUR ---
REPORT CALLED TO [facility]. [facility] ESCORTED PT TO [facility]. DISCHARGE PACKET WITH [facility] [facility] SENT WITH TRANSPORT. PT LEFT WITH ALL PERSONAL BELONGINGS. POWERGLIDE IV DC'D THIS MORNING.
== END 2019-03-15 10:11 | DRG 330 ==
LOC: ER 07:08 → SURS 13:11
PROVIDERS: Emergency Medicine; Internal Medicine; Surgery; ADMIT Hospitalist
PROC: 0D1B0Z4 Bypass Ileum to Cutaneous, Open Approach (ICD-10-PCS; principal; 2019-03-10 12:30)
PROC: 0DN80ZZ Release Small Intestine, Open Approach (ICD-10-PCS; 2019-03-10 12:30)
DX: C19 Malignant neoplasm of rectosigmoid junction (principal); E44.0 Moderate protein-calorie malnutrition; C78.7 Secondary malignant neoplasm of liver and intrahepatic bile duct; C78.00 Secondary malignant neoplasm of unspecified lung; C79.89 Secondary malignant neoplasm of other specified sites; R64 Cachexia; E87.6 Hypokalemia; Z92.21 Personal history of antineoplastic chemotherapy; Z90.49 Acquired absence of other specified parts of digestive tract; Z92.3 Personal history of irradiation
CPT/HCPCS: 36415; 74019; 74177; 80048; 80053; 81001; 83690; 84132; 85025; 85027; 87086; 93005; 93010; 96360-59; 96361; 99285-25; C9113; J0690; J1100; J1650; J1885; J2250; J2405; J2704; J3010; J3480; J7030; J7040; J7120; Q9967